=== PATIENT | female | born 1980 | race African-American/Black ===

== ENCOUNTER 2022-06-02 22:12 | Emergency (ER) | payer MEDICAID ==
[~2022-06-02] VITALS: Ht 167.6 cm; Wt 80.0 kg
[~2022-06-02 22:12] MED LIST: AMLO10TA80 PO; ASPI-986 PO; ATOR40TA70 PO; CARV25TA47 PO; CLON0.1T PO; HYDR-4135 PO; [UNRECOGNIZED DRUG - CODE]
[2022-06-02 22:50] VITALS: BP 193/118
== END 2022-06-03 05:46 | disposition home or self-care (01) ==
LOC: ER 22:21
DX: I25.2 Old myocardial infarction (principal); I10 Essential (primary) hypertension; J45.909 Unspecified asthma, uncomplicated; Z98.890 Other specified postprocedural states; Z91.018 Allergy to other foods
CPT/HCPCS: 99281

== ENCOUNTER 2022-11-15 11:28 | Inpatient (IN) | payer MEDICAID ==
[~2022-11-15] VITALS: Ht 167.6 cm; Wt 78.0 kg
[2022-11-15 12:10] LABS: BASOPHILS % 0.9 % (0.0-2.0); EOSINOPHILS % 3.1 % (0.0-5.0); HEMATOCRIT. 30.3 % (36.0-48.0); HEMOGLOBIN. 10.1 g/dL (12.0-16.0); LYMPHOCYTES % 11.8 % (20.0-50.0); MEAN CORPUSCULAR HEMOGLOBIN 27.3 pg (28.0-32.0); MEAN CORPUSCULAR HGB CONC 33.1 g/dL (31.0-37.0); MEAN CORPUSCULAR VOLUME 82.4 fL (81.0-99.0); MEAN PLATELET VOLUME 9.5 fl (7.4-10.4); MONOCYTES % 5.9 % (2.0-8.0); NEUTROPHILS % 78.3 % (40.0-76.0); PLATELET 221 x1000/uL (130-400); RED BLOOD CELL COUNT 3.68 mill/uL (4.2-5.4); RED CELL DISTRIBUTION WIDTH 15.9 % (11.6-14.6); WHITE BLOOD COUNT 6.8 x1000/uL (4.5-11.0)
[2022-11-15] MEDS ORDERED: FUROSEMIDE 40MG/4ML VIAL IVP ONE (12:30)
[2022-11-15] MEDS ORDERED: ENALAPRIL 2.5MG/2ML VIAL 2ML IV ONE (12:30)
[2022-11-15 12:37] LABS: CHLORIDE 118 mEq/L (98-107); INDEX HEMOLYSI 1 (1-3); INDEX ICTERIC 1 (1-4); INDEX LIPEMIC 1 (1-3); POTASSIUM 3.4 mEq/L (3.5-5.1); SODIUM 143 mEq/L (136-145)
[2022-11-15 12:40] LABS: HCG SCREEN NEGATIVE
[2022-11-15] MEDS ORDERED: ENALAPRIL 1.25MG/ML VIAL 1ML IV NR (12:45)
[2022-11-15 12:46] LABS: ALANINE AMINOTRANSFERASE 16 IU/L (13-61); ALBUMIN 3.1 g/dL (3.4-5.0); ASPARTATE AMINOTRANSFERASE 9 IU/L (15-37); BILIRUBIN TOTAL 0.4 mg/dL (0.1-1.0); CALCIUM 8.4 mg/dL (8.5-10.1); CARBON DIOXIDE 17 mEq/L (21-32); CREATININE 3.3 mg/dL (0.6-1.3); GLUCOSE 102 mg/dL (70-105); NT PRO B-TYPE NATRIURETIC PEP 19734 pg/mL (5-125); PROTEIN TOTAL 6.9 g/dL (6.0-8.3); UREA NITROGEN BLOOD 39 mg/dL (7-21)
[2022-11-15 13:00] LABS: TROPONIN I HIGH SENSITIVITY 60 ng/L (<54)
[2022-11-15] MEDS ORDERED: NITROGLYCERIN OINT 1GM/INCH UDPKT TD ONE (13:45)
[2022-11-15] MEDS ORDERED: ENOXAPARIN 80MG/0.8ML SYR SUBCUT ONE (13:45)
[2022-11-15] MEDS ORDERED: HYDRALAZINE 20MG/ML VIAL IV NR (15:00)
[2022-11-15] MEDS ORDERED: NIFEDIPINE XL 60MG TAB PO ONE (16:45)
[2022-11-15] MEDS ORDERED: ONDANSETRON HCL 4MG/2ML INJ IV PRN (16:45)
[2022-11-15] MEDS ORDERED: ACETAMINOPHEN 325MG TABLET PO PRN (16:45)
[2022-11-15] MEDS ORDERED: NIFEDIPINE XL 60MG TAB PO SCH (17:00)
[2022-11-15] MEDS: CLONIDINE 0.1MG TABLET PO PRN ×2 (17:22→21:36)
[2022-11-15] MEDS ORDERED: MINOXIDIL 2.5MG TABLET PO NR (18:00)
[2022-11-15 18:10] LABS: TROPONIN I HIGH SENSITIVITY 63 ng/L (<54)
[2022-11-16] VITALS (7 sets, daily range): BP systolic 109–200; BP diastolic 88–123; PULSE 68–80; RESP 18–20; TEMP 97–97.7; O2SAT 96
[2022-11-16] MEDS ORDERED: HYDRALAZINE 20MG/ML VIAL IV PRN (00:15)
[2022-11-16] MEDS ORDERED: NIFE-32 PO (00:18)
[2022-11-16] MEDS: CLONIDINE 0.1MG TABLET PO PRN ×2 (05:45→13:06)
[2022-11-16 08:03] LABS: POTASSIUM 3.7 mEq/L (3.5-5.1)
[2022-11-16 08:28] LABS: CALCIUM 8.4 mg/dL (8.5-10.1); CREATININE 3.4 mg/dL (0.6-1.3)
[2022-11-16] MEDS ORDERED: FUROSEMIDE 40MG/4ML VIAL IVP SCH (09:00)
[2022-11-16] MEDS ORDERED: ENOXAPARIN 30MG/0.3ML SYR SUBCUT SCH (09:00)
[2022-11-16] MEDS ORDERED: ASPIRIN 325MG TABLET PO SCH (09:00)
[2022-11-16] MEDS ORDERED: HYDRALAZINE HCL 50MG TABLET PO SCH (09:00)
[2022-11-16] MEDS ORDERED: NIFEDIPINE XL 60MG TAB PO SCH ×2 (09:00→21:00)
[2022-11-16] MEDS ORDERED: MINOXIDIL 2.5MG TABLET PO NR (10:15)
[2022-11-16] MEDS ORDERED: FURO-151 MT (12:55)
[2022-11-16 17:06] LABS: *AMPHETAMINES SCREEN URINE NEGATIVE (NEGATIVE); *BARBITURATES SCREEN URINE NEGATIVE (NEGATIVE); *BENZODIAZEPINES SCREEN URINE NEGATIVE (NEGATIVE); *COCAINE SCREEN URINE NEGATIVE (NEGATIVE); CANNABINOID URINE SCREEN NEGATIVE (NEGATIVE); ECSTASY MDMA SCREEN URINE NEGATIVE (NEGATIVE); METHADONE URINE SCREEN NEGATIVE (NEGATIVE); OPIATES URINE SCREEN NEGATIVE (NEGATIVE); PHENCYCLIDINE URINE SCREEN NEGATIVE (NEGATIVE)
[2022-11-16] MEDS ORDERED: ATORVASTATIN CALCIUM 40MG TABLET PO SCH (21:00)
[2022-11-16] MEDS ORDERED: MINOXIDIL 2.5MG TABLET PO SCH (21:00)
== END 2022-11-16 16:20 | disposition home or self-care (01) | DRG 199 ==
LOC: ER 12:09 → EDBEDREQ 13:46 → MICUSO 14:15 → EDBEDREQTM 14:17 → EDBEDREQ 14:17 → 7WST 11-16 00:21
PROVIDERS: ADMIT Internal Medicine; ATTEND Internal Medicine
DX: I16.0 Hypertensive urgency (principal); I50.43 Acute on chronic combined systolic (congestive) and diastolic (congestive) heart failure; E44.1 Mild protein-calorie malnutrition; N17.9 Acute kidney failure, unspecified; I13.0 Hypertensive heart and chronic kidney disease with heart failure and stage 1 through stage 4 chronic kidney disease, or unspecified chronic kidney disease; N18.9 Chronic kidney disease, unspecified; D64.9 Anemia, unspecified; I25.10 Atherosclerotic heart disease of native coronary artery without angina pectoris; J45.909 Unspecified asthma, uncomplicated; E87.6 Hypokalemia; Z95.5 Presence of coronary angioplasty implant and graft; Z98.891 History of uterine scar from previous surgery; Z68.27 Body mass index [BMI] 27.0-27.9, adult
CPT/HCPCS: 36415; 71045; 76604; 80048; 80053; 80305; 83605; 83880; 84484; 84703; 85025; 93005; 93306; 93880; 99285; J0360; J1650; J1940; J3490

== ENCOUNTER 2023-08-01 02:45 | Inpatient (IN) | payer BC, MEDICAID ==
[2023-08-01] VITALS (52 sets, daily range): BP systolic 147–186; BP diastolic 81–107; PULSE 79–104; RESP 16–29; TEMP 98–98.3; O2SAT 95–96
[~2023-08-01] VITALS: Ht 162.6 cm; Wt 81.2 kg
[~2023-08-01 02:45] MED LIST changes: +FURO-151 MT; -HYDR-4135 PO; +HYDR50TA40 PO; +NIFE-32 PO
[2023-08-01] MEDS: LABETALOL 5MG/ML SYR 20 MG/4 ML SYRINGE IV ONE (03:41)
[2023-08-01] MEDS ORDERED: NICARDIPINE 100 MG in SODIUM CHLORIDE 0.9% 60 ML IV ONE (03:45)
[2023-08-01 03:54] LABS: BASOPHILS % 1.2 % (0.0-2.0); DIFFERENTIAL COMMENT 0; EOSINOPHILS % 10.3 % (0.0-5.0); HEMATOCRIT. 26.1 % (36.0-48.0); HEMOGLOBIN. 8.6 g/dL (12.0-16.0); LYMPHOCYTES % 8.8 % (20.0-50.0); MEAN CORPUSCULAR HEMOGLOBIN 26.2 pg (28.0-32.0); MEAN CORPUSCULAR HGB CONC 32.8 g/dL (31.0-37.0); MEAN CORPUSCULAR VOLUME 79.9 fL (81.0-99.0); MEAN PLATELET VOLUME 9.4 fl (7.4-10.4); MONOCYTES % 4.4 % (2.0-8.0); NEUTROPHILS % 75.3 % (40.0-76.0); PLATELET 243 x1000/uL (130-400); RED BLOOD CELL COUNT 3.27 mill/uL (4.2-5.4); WHITE BLOOD COUNT 6.8 x1000/uL (4.5-11.0)
[2023-08-01] MEDS: ALBUTEROL (0.083%) 2.5MG/3ML NEB HHN STA (03:54)
[2023-08-01] MEDS: IPRATROPIUM BROMIDE (0.02%) 0.5MG/2.5ML NEB HHN STA (03:54)
[2023-08-01 04:12] LABS: CHLORIDE 111 mEq/L (98-107); POTASSIUM 3.1 mEq/L (3.5-5.1); SODIUM 144 mEq/L (136-145)
[2023-08-01 04:13] LABS: CALCIUM 9.2 mg/dL (8.7-10.4); CARBON DIOXIDE 20 mEq/L (21-32)
[2023-08-01 04:17] LABS: HCG SCREEN NEGATIVE
[2023-08-01 04:18] LABS: CREATININE 3.5 mg/dL (0.6-1.0); GLUCOSE 99 mg/dL (70-105); UREA NITROGEN BLOOD 48 mg/dL (9-23)
[2023-08-01 04:24] LABS: TROPONIN I HIGH SENSITIVITY 85 ng/L (3.0-34)
[2023-08-01] MEDS: NICARDIPINE 40 MG/200 ML PREMIX 200 ML IV PRN (04:31)
[2023-08-01] MEDS: FUROSEMIDE 40MG/4ML VIAL IVP NR ×2 (05:26→18:35)
[2023-08-01] MEDS ORDERED: ONDANSETRON HCL 4MG/2ML INJ IV PRN (05:30)
[2023-08-01] MEDS ORDERED: GUAIFENESIN 200MG/10ML SUGAR FREE UDC PO PRN (05:30)
[2023-08-01] MEDS: POTASSIUM CHLORIDE 20MEQ/PACKET PO NR (06:35)
[2023-08-01] MEDS: ASPIRIN 325MG EC TABLET PO NR (06:35)
[2023-08-01 07:01] LABS: CLARITY URINE CLEAR (CLEAR); COLOR URINE YELLOW (YELLOW); GLUCOSE URINE NEGATIVE (NEGATIVE); KETONES URINE NEGATIVE (NEGATIVE); LEUKOCYTE ESTERASE URINE NEGATIVE (NEGATIVE); NITRITE URINE NEGATIVE (NEGATIVE); OCCULT BLOOD URINE NEGATIVE (NEGATIVE); PH URINE 5.5 (4.5-8.0); PROTEIN URINE 2+ (NEGATIVE); UROBILINOGEN URINE 0.2 E.U./dL (0.2-1.0)
[2023-08-01 07:12] LABS: TROPONIN I HIGH SENSITIVITY 90 ng/L (3.0-34)
[2023-08-01 07:16] LABS: BACTERIA URINE TRACE; RBC URINE 0-2 /hpf (0-2); SQUAMOUS EPITHELIAL CELL URINE 1+ /lpf (RARE/1+); WBC URINE NONE SEEN /hpf (0-2)
[2023-08-01 07:44] LABS: *AMPHETAMINES SCREEN URINE NEGATIVE (NEGATIVE); *BARBITURATES SCREEN URINE NEGATIVE (NEGATIVE); *BENZODIAZEPINES SCREEN URINE NEGATIVE (NEGATIVE); *COCAINE SCREEN URINE NEGATIVE (NEGATIVE); CANNABINOID URINE SCREEN NEGATIVE (NEGATIVE); ECSTASY MDMA SCREEN URINE NEGATIVE (NEGATIVE); METHADONE URINE SCREEN NEGATIVE (NEGATIVE); OPIATES URINE SCREEN NEGATIVE (NEGATIVE); PHENCYCLIDINE URINE SCREEN NEGATIVE (NEGATIVE)
[2023-08-01 07:52] LABS: BG BASE EXCESS -5.4 mmol/L (-2.0-2.0); BG CARBOXYHEMOGLOBIN 0.3 % (0.5-1.5); BG DEOXYHEMOGLOBIN 3.4 % (0.0-5.0); BG FRACTION INSPIRED OXYGEN 40; BG HCO3 ACT 18.1 mmol/L (22.0-26.0); BG METHEMOGLOBIN 0.3 % (0.0-1.5); BG OXYGEN SATURATION 96.6 % (92.0-98.5); BG PCO2 27.9 mmHg (35.0-45.0); BG PH 7.429 (7.350-7.450); BG PO2 91.6 mmHg (75.0-100.0); BG SAMPLE SITE RIGHT RADIAL; BG TOTAL HEMOGLOBIN 8.9 g/dL (12.0-18.0); BG VENT MODE NASAL CANNULA
[2023-08-01 08:02] LABS: CARBON DIOXIDE 19 mEq/L (21-32); CHLORIDE 113 mEq/L (98-107); POTASSIUM 3.7 mEq/L (3.5-5.1); SODIUM 144 mEq/L (136-145)
[2023-08-01 08:03] LABS: CALCIUM 9.3 mg/dL (8.7-10.4)
[2023-08-01 08:07] LABS: IRON 36 ug/dL (50-170)
[2023-08-01 08:08] LABS: CREATININE 3.4 mg/dL (0.6-1.0); GLUCOSE 108 mg/dL (70-105); TRIGLYCERIDE 90 mg/dL (0-150); UREA NITROGEN BLOOD 47 mg/dL (9-23)
[2023-08-01 08:09] LABS: ALANINE AMINOTRANSFERASE 15 IU/L (10-49); ALBUMIN 4.1 g/dL (3.2-4.8); ASPARTATE AMINOTRANSFERASE 20 IU/L (<34); LDL CHOLESTEROL 115 mg/dL (5-100)
[2023-08-01 08:10] LABS: BILIRUBIN TOTAL 0.3 mg/dL (0.1-1.0); CHOLESTEROL 159 mg/dL (<200); FOLIC ACID (FOLATE) SERUM 8.04 ng/mL (>5.38); HDL CHOLESTEROL 41 mg/dL (>65); PHOSPHORUS 4.6 mg/dL (2.5-4.9); THYROID STIMULATING HORMONE 0.53 uIU/mL (0.55-4.78); TOTAL IRON BINDING CAPACITY 250 ug/dl (250-425)
[2023-08-01 08:11] LABS: PROTEIN TOTAL 7.2 g/dL (6.0-8.3)
[2023-08-01 08:12] LABS: FERRITIN 22 ng/mL (10-291); T4 FREE 1.19 ng/dL (0.89-1.76)
[2023-08-01 08:41] LABS: CREATINE KINASE MB FRACTION 1.9 ng/mL (0.5-3.6)
[2023-08-01 09:00] LABS: VITAMIN B12 SERUM 426 pg/mL (211-911)
[2023-08-01] MEDS ORDERED: CEFTRIAXONE SODIUM 2G VIAL IM NR (09:00)
[2023-08-01] MEDS: DOXYCYCLINE HYCLATE 100MG CAPSULE PO SCH (09:44)
[2023-08-01] MEDS: ENOXAPARIN 30MG/0.3ML SYR SUBCUT SCH (09:44)
[2023-08-01] MEDS: CEFTRIAXONE 2GM/50ML 50 ML IV SCH (14:34)
[2023-08-01] MEDS: HYDRALAZINE HCL 100MG TABLET PO SCH (14:35)
[2023-08-01] MEDS: NICARDIPINE 50 MG in SODIUM CHLORIDE 0.9% 230 ML IV PRN (15:49)
[2023-08-01 19:14] LABS: CREATINE KINASE MB FRACTION 2.3 ng/mL (0.5-3.6)
[2023-08-01] MEDS: NITROGLYCERIN OINT 1GM/INCH UDPKT TD NR (19:57)
[2023-08-01] MEDS: ATORVASTATIN CALCIUM 40MG TABLET PO SCH (20:16)
[2023-08-01] MEDS ORDERED: CARVEDILOL 12.5MG TABLET PO SCH (21:00)
[2023-08-01] MEDS: IPRATROPIUM/ALBUTEROL 0.5-3(2.5)MG/3ML NEB HHN PRN (21:31)
[2023-08-01] MEDS: CLONIDINE 0.1MG TABLET PO SCH (21:46)
[2023-08-02] VITALS (98 sets, daily range): BP systolic 132–201; BP diastolic 75–102; PULSE 80–117; RESP 16–31; TEMP 97.7–97.9; O2SAT 94–100
[2023-08-02 01:11] LABS: CREATINE KINASE MB FRACTION 2.3 ng/mL (0.5-3.6)
[2023-08-02 05:11] LABS: POTASSIUM 3.3 mEq/L (3.5-5.1)
[2023-08-02 05:12] LABS: CALCIUM 9.1 mg/dL (8.7-10.4)
[2023-08-02 05:17] LABS: CREATININE 3.5 mg/dL (0.6-1.0)
[2023-08-02] MEDS ORDERED: CEFTRIAXONE SODIUM 2G VIAL IV NR (09:00)
[2023-08-02] MEDS ORDERED: IPRATROPIUM/ALBUTEROL 0.5-3(2.5)MG/3ML NEB HHN PRN (09:00)
[2023-08-02] MEDS: POTASSIUM CHLORIDE 20MEQ TABLET SR PO NR (09:10)
[2023-08-02] MEDS: AMLODIPINE 10MG TABLET PO SCH (09:11)
[2023-08-02] MEDS: OMEPRAZOLE 20MG CAPSULE EXTENDED RELEASE PO SCH (09:11)
[2023-08-02 10:13] LABS: BASOPHILS % 1.2 % (0.0-2.0); EOSINOPHILS % 9.3 % (0.0-5.0); HEMATOCRIT. 23.9 % (36.0-48.0); HEMOGLOBIN. 7.6 g/dL (12.0-16.0); LYMPHOCYTES % 8.1 % (20.0-50.0); MEAN CORPUSCULAR HEMOGLOBIN 25.7 pg (28.0-32.0); MEAN CORPUSCULAR HGB CONC 31.6 g/dL (31.0-37.0); MEAN CORPUSCULAR VOLUME 81.2 fL (81.0-99.0); MEAN PLATELET VOLUME 9.3 fl (7.4-10.4); MONOCYTES % 5.3 % (2.0-8.0); NEUTROPHILS % 76.1 % (40.0-76.0); PLATELET 254 x1000/uL (130-400); RED BLOOD CELL COUNT 2.94 mill/uL (4.2-5.4); RED CELL DISTRIBUTION WIDTH 20.2 % (11.6-14.6); WHITE BLOOD COUNT 7.8 x1000/uL (4.5-11.0)
[2023-08-02 11:14] LABS: BG BASE EXCESS -5.8 mmol/L (-2.0-2.0); BG CARBOXYHEMOGLOBIN 0.3 % (0.5-1.5); BG DEOXYHEMOGLOBIN 0.7 % (0.0-5.0); BG FRACTION INSPIRED OXYGEN 100; BG HCO3 ACT 18.1 mmol/L (22.0-26.0); BG METHEMOGLOBIN 0.3 % (0.0-1.5); BG OXYGEN SATURATION 99.3 % (92.0-98.5); BG OXYHEMOGLOBIN 98.7 % (94.0-97.0); BG PCO2 29.9 mmHg (35.0-45.0); BG PH 7.399 (7.350-7.450); BG PO2 492.6 mmHg (75.0-100.0); BG SAMPLE SITE RIGHT RADIAL; BG TOTAL HEMOGLOBIN 9.6 g/dL (12.0-18.0); BG VENT MODE MASK - BIPAP
[2023-08-02] MEDS: IPRATROPIUM/ALBUTEROL 0.5-3(2.5)MG/3ML NEB HHN SCH (12:36)
[2023-08-02] MEDS: MINOXIDIL 2.5MG TABLET PO SCH (12:58)
[2023-08-02] MEDS ORDERED: CLON1PAT12 TP (18:32)
[2023-08-02] MEDS ORDERED: OMEP40CA20 MT (18:32)
[2023-08-02] MEDS ORDERED: BECL10.6 INH (18:32)
[2023-08-03] VITALS (87 sets, daily range): BP systolic 129–199; BP diastolic 76–122; PULSE 73–122; RESP 14–33; TEMP 97.8–99.2; O2SAT 95–98
[2023-08-03] MEDS ORDERED: CLONIDINE 0.1MG TABLET PO PRN (01:15)
[2023-08-03] MEDS: NICARDIPINE 40 MG/200 ML PREMIX 200 ML IV PRN (01:25)
[2023-08-03] MEDS: ACETAMINOPHEN 325MG TABLET PO PRN (01:26)
[2023-08-03] MEDS: CLONIDINE 0.2MG TABLET PO NR (01:26)
[2023-08-03 05:35] LABS: HEMOGLOBIN. 7.4 g/dL (12.0-16.0); MEAN CORPUSCULAR HEMOGLOBIN 26.1 pg (28.0-32.0); MEAN CORPUSCULAR HGB CONC 32.3 g/dL (31.0-37.0); MEAN CORPUSCULAR VOLUME 80.8 fL (81.0-99.0); MEAN PLATELET VOLUME 9.4 fl (7.4-10.4); PLATELET 259 x1000/uL (130-400); RED BLOOD CELL COUNT 2.84 mill/uL (4.2-5.4); WHITE BLOOD COUNT 8.8 x1000/uL (4.5-11.0)
[2023-08-03 05:45] LABS: POTASSIUM 3.6 mEq/L (3.5-5.1)
[2023-08-03 05:46] LABS: CALCIUM 9.3 mg/dL (8.7-10.4)
[2023-08-03 05:51] LABS: CREATININE 3.4 mg/dL (0.6-1.0)
[2023-08-03 05:56] LABS: PARTIAL THROMBOPLASTIN TIME 25.7 sec (23.4-31.0); PROTHROMBIN TIME 11.5 sec (9.6-11.0)
[2023-08-03 05:59] LABS: DIFFERENTIAL COMMENT 1
[2023-08-03] MEDS: HYDROCHLOROTHIAZIDE 12.5MG CAPSULE PO SCH (08:58)
[2023-08-03] MEDS: LOSARTAN 50 MG TABLET PO SCH (08:58)
[2023-08-03] MEDS: CITRIC ACID/SODIUM CITRATE SOLN 15ML UDC PO SCH (09:00)
[2023-08-03] MEDS ORDERED: CLONIDINE HCL 0.3MG/24HR PATCH TD SCH (11:00)
[2023-08-03 11:21] LABS: PROTEIN BODY FLUID < 2.0 gm/dL
[2023-08-03 13:11] LABS: BODY FLUID RBC 1310 /cu mm (0-2000); BODY FLUID WBC 26 /cu mm (0-200)
[2023-08-03] MEDS ORDERED: ACETAMINOPHEN 325MG TABLET PO PRN (13:45)
[2023-08-03 14:00] LABS: ANISOCYTOSIS 2+; PLATELET ESTIMATE NORMAL
[2023-08-03] MEDS ORDERED: CLONIDINE HCL 0.1MG/24HR PATCH TD SCH (14:00)
[2023-08-03] MEDS ORDERED: MINOXIDIL 10MG TABLET PO SCH (21:00)
[2023-08-04] VITALS (65 sets, daily range): BP systolic 123–178; BP diastolic 71–110; PULSE 80–103; RESP 12–24; TEMP 97.3–99.2; O2SAT 96–98
[2023-08-04] MEDS: MINOXIDIL 10MG TABLET PO SCH (00:18)
[2023-08-04 06:55] LABS: CARBON DIOXIDE 20 mEq/L (21-32); CHLORIDE 114 mEq/L (98-107); POTASSIUM 3.7 mEq/L (3.5-5.1); SODIUM 144 mEq/L (136-145)
[2023-08-04 07:00] LABS: CREATININE 3.4 mg/dL (0.6-1.0)
[2023-08-04 07:01] LABS: GLUCOSE 93 mg/dL (70-105); UREA NITROGEN BLOOD 43 mg/dL (9-23)
[2023-08-04 07:03] LABS: PHOSPHORUS 5.1 mg/dL (2.5-4.9)
[2023-08-04] MEDS: FUROSEMIDE 40MG/4ML VIAL IVP NR (09:47)
[2023-08-04 12:47] LABS: HEMATOCRIT 23.2 % (36.0-48.0); HEMOGLOBIN 7.4 g/dL (12.0-16.0)
[2023-08-04] MEDS: METOPROLOL TARTRATE 25MG TABLET PO SCH (20:47)
[2023-08-05] VITALS (10 sets, daily range): BP systolic 99–147; BP diastolic 61–95; PULSE 77–95; RESP 16–30; TEMP 96.3–98.1; O2SAT 99
[2023-08-05] MEDS: NIFEDIPINE XL 90MG TAB PO SCH (09:10)
[2023-08-05] MEDS: IRON SUCROSE COMPLEX 100 MG/5 ML ML IV SCH (13:42)
== END 2023-08-05 20:10 | disposition left against medical advice (07) | DRG 280 ==
LOC: ER 02:45 → MICUSO 04:24 → EDBEDREQ 04:44 → EDBEDREQTM 04:44 → 5EST 08-04 11:50
PROVIDERS: ADMIT Internal Medicine; ATTEND Internal Medicine
PROC: 5A09357 Assistance with Respiratory Ventilation, Less than 24 Consecutive Hours, Continuous Positive Airway Pressure (ICD-10-PCS; 2023-08-02)
PROC: 0W993ZZ Drainage of Right Pleural Cavity, Percutaneous Approach (ICD-10-PCS; principal; 2023-08-03)
PROC: 0W9B3ZZ Drainage of Left Pleural Cavity, Percutaneous Approach (ICD-10-PCS; 2023-08-05)
DX: I16.1 Hypertensive emergency (principal); J96.01 Acute respiratory failure with hypoxia; I21.A1 Myocardial infarction type 2; I50.32 Chronic diastolic (congestive) heart failure; N17.9 Acute kidney failure, unspecified; N18.4 Chronic kidney disease, stage 4 (severe); E87.20 Acidosis, unspecified; J91.8 Pleural effusion in other conditions classified elsewhere; I13.0 Hypertensive heart and chronic kidney disease with heart failure and stage 1 through stage 4 chronic kidney disease, or unspecified chronic kidney disease; N18.9 Chronic kidney disease, unspecified; I25.10 Atherosclerotic heart disease of native coronary artery without angina pectoris; D25.9 Leiomyoma of uterus, unspecified; Z53.29 Procedure and treatment not carried out because of patient's decision for other reasons; E78.5 Hyperlipidemia, unspecified; J45.909 Unspecified asthma, uncomplicated; R79.89 Other specified abnormal findings of blood chemistry; D72.10 Eosinophilia, unspecified; D50.9 Iron deficiency anemia, unspecified; D63.8 Anemia in other chronic diseases classified elsewhere; E05.90 Thyrotoxicosis, unspecified without thyrotoxic crisis or storm; H05.20 Unspecified exophthalmos; E87.6 Hypokalemia; Z98.891 History of uterine scar from previous surgery; Z95.5 Presence of coronary angioplasty implant and graft; Z79.51 Long term (current) use of inhaled steroids; Z79.82 Long term (current) use of aspirin; Z79.899 Other long term (current) drug therapy; Z88.8 Allergy status to other drugs, medicaments and biological substances
CPT/HCPCS: 32555; 36415; 36600; 71045; 76536; 76604; 76700; 76770; 78580; 80048; 80053; 80061; 80305; 81003; 82088; 82375; 82550; 82553; 82607; 82728; 82746; 82805; 83540; 83550; 83605; 83615; 83735; 83835; 83880; 83986; 84100; 84145; 84244; 84439; 84443; 84484; 84703; 85014; 85018; 85025; 85379; 85651; 86038; 86850; 86900; 88108; 93005; 93306; 93970; 94640; 94660; 99285; C8901; J0696; J1650; J1940; J3490; J7050

== ENCOUNTER 2024-09-04 10:43 | Inpatient (IN) | payer MEDICAID, OTHER ==
[2024-09-04] VITALS (45 sets, daily range): BP systolic 144–238; BP diastolic 81–162; PULSE 65–102; RESP 15–28; TEMP 36.4–36.89184; O2SAT 92–99
[~2024-09-04] VITALS: Ht 172.7 cm; Wt 67.8 kg
[~2024-09-04 10:43] MED LIST changes: -AMLO10TA80 PO; +BECL10.6 INH; -NIFE-32 PO; +NIFE90TA60 PO; +OMEP40CA20 MT; -[UNRECOGNIZED DRUG - CODE]
[2024-09-04 11:30] LABS: BASOPHILS % 1.9 % (0.0-2.0); DIFFERENTIAL COMMENT 0; EOSINOPHILS % 5.4 % (0.0-5.0); HEMATOCRIT. 25.8 % (36.0-48.0); HEMOGLOBIN. 8.4 g/dL (12.0-16.0); LYMPHOCYTES % 7.3 % (20.0-50.0); MEAN CORPUSCULAR HEMOGLOBIN 25.7 pg (28.0-32.0); MEAN CORPUSCULAR HGB CONC 32.5 g/dL (31.0-37.0); MEAN PLATELET VOLUME 8.6 fl (7.4-10.4); MONOCYTES % 4.4 % (2.0-8.0); PLATELET 249 x1000/uL (130-400); RED BLOOD CELL COUNT 3.26 mill/uL (4.2-5.4); RED CELL DISTRIBUTION WIDTH 20.4 % (11.6-14.6); WHITE BLOOD COUNT 6.6 x1000/uL (4.5-11.0)
[2024-09-04 11:36] LABS: CHLORIDE 115 mEq/L (98-107); SODIUM 147 mEq/L (136-145)
[2024-09-04 11:37] LABS: CARBON DIOXIDE 17 mEq/L (21-32)
[2024-09-04 11:38] LABS: CALCIUM 6.9 mg/dL (8.7-10.4)
[2024-09-04 11:42] LABS: GLUCOSE 120 mg/dL (70-105); UREA NITROGEN BLOOD 77 mg/dL (9-23)
[2024-09-04 11:44] LABS: ALANINE AMINOTRANSFERASE 37 IU/L (10-49); ALBUMIN 3.6 g/dL (3.2-4.8); ASPARTATE AMINOTRANSFERASE 26 IU/L (<34)
[2024-09-04 11:45] LABS: BILIRUBIN DIRECT 0.1 mg/dL (<=3.0); BILIRUBIN TOTAL 0.2 mg/dL (0.1-1.0); PROTEIN TOTAL 5.6 g/dL (6.0-8.3)
[2024-09-04] MEDS: FUROSEMIDE 40MG/4ML VIAL IVP ONE (11:57)
[2024-09-04] MEDS: NITROGLYCERIN 50MG PREMIX 250 ML IV ONE (12:06)
[2024-09-04 12:18] LABS: HCG SCREEN NEGATIVE
[2024-09-04 12:33] LABS: CREATININE 5.4 mg/dL (0.6-1.0); POTASSIUM 2.8 mEq/L (3.5-5.1)
[2024-09-04 12:34] LABS: TROPONIN I HIGH SENSITIVITY 111 ng/L (3.0-34)
[2024-09-04] MEDS ORDERED: HYDRALAZINE HCL 25MG TABLET PO SCH (12:45)
[2024-09-04] MEDS ORDERED: ONDANSETRON HCL 4MG/2ML INJ IV PRN (12:45)
[2024-09-04] MEDS ORDERED: IPRATROPIUM/ALBUTEROL 0.5-3(2.5)MG/3ML NEB HHN PRN (13:45)
[2024-09-04] MEDS: NICARDIPINE 40MG/200ML PREMIX 200 ML IV PRN (14:21)
[2024-09-04] MEDS: POTASSIUM CHLORIDE 20MEQ TABLET SR PO SCH (16:09)
[2024-09-04 16:44] LABS: THYROID STIMULATING HORMONE 0.28 uIU/mL (0.55-4.78)
[2024-09-04 21:26] LABS: CLARITY URINE CLEAR (CLEAR); COLOR URINE YELLOW (YELLOW); GLUCOSE URINE NEGATIVE (NEGATIVE); KETONES URINE NEGATIVE (NEGATIVE); LEUKOCYTE ESTERASE URINE NEGATIVE (NEGATIVE); NITRITE URINE NEGATIVE (NEGATIVE); OCCULT BLOOD URINE NEGATIVE (NEGATIVE); PROTEIN URINE 3+ (NEGATIVE); UROBILINOGEN URINE 0.2 E.U./dL (0.2-1.0)
[2024-09-04 21:38] LABS: BACTERIA URINE TRACE; RBC URINE 0-2 /hpf (0-2); SQUAMOUS EPITHELIAL CELL URINE FEW /lpf (RARE/1+); WBC URINE 0-2 /hpf (0-2)
[2024-09-04 21:44] LABS: *AMPHETAMINES SCREEN URINE NEGATIVE (NEGATIVE); *BARBITURATES SCREEN URINE NEGATIVE (NEGATIVE); *BENZODIAZEPINES SCREEN URINE NEGATIVE (NEGATIVE); *COCAINE SCREEN URINE NEGATIVE (NEGATIVE); CANNABINOID URINE SCREEN NEGATIVE (NEGATIVE); ECSTASY MDMA SCREEN URINE NEGATIVE (NEGATIVE); METHADONE URINE SCREEN NEGATIVE (NEGATIVE); OPIATES URINE SCREEN NEGATIVE (NEGATIVE); PHENCYCLIDINE URINE SCREEN NEGATIVE (NEGATIVE)
[2024-09-04] MEDS: CLONIDINE 0.1MG TABLET PO SCH (22:19)
[2024-09-04] MEDS: NIFEDIPINE XL 60MG TAB PO SCH (22:21)
[2024-09-04] MEDS: HYDRALAZINE HCL 100MG TABLET PO SCH (22:21)
[2024-09-05] VITALS (48 sets, daily range): BP systolic 124–172; BP diastolic 79–108; PULSE 72–111; RESP 14–25; TEMP 36.2–36.8; O2SAT 88–98
[2024-09-05 06:03] LABS: BASOPHILS % 1.8 % (0.0-2.0); DIFFERENTIAL COMMENT 0; EOSINOPHILS % 4.9 % (0.0-5.0); HEMATOCRIT. 22.9 % (36.0-48.0); HEMOGLOBIN. 7.5 g/dL (12.0-16.0); LYMPHOCYTES % 9.7 % (20.0-50.0); MEAN CORPUSCULAR HEMOGLOBIN 25.3 pg (28.0-32.0); MEAN CORPUSCULAR HGB CONC 32.6 g/dL (31.0-37.0); MEAN CORPUSCULAR VOLUME 77.8 fL (81.0-99.0); MEAN PLATELET VOLUME 8.7 fl (7.4-10.4); MONOCYTES % 8.3 % (2.0-8.0); NEUTROPHILS % 75.3 % (40.0-76.0); PLATELET 220 x1000/uL (130-400); RED BLOOD CELL COUNT 2.94 mill/uL (4.2-5.4); RED CELL DISTRIBUTION WIDTH 20.1 % (11.6-14.6); WHITE BLOOD COUNT 6.5 x1000/uL (4.5-11.0)
[2024-09-05 06:36] LABS: POTASSIUM 3.2 mEq/L (3.5-5.1)
[2024-09-05 06:37] LABS: CALCIUM 8.8 mg/dL (8.7-10.4)
[2024-09-05 06:42] LABS: CREATININE 4.6 mg/dL (0.6-1.0)
[2024-09-05 06:47] LABS: PHOSPHORUS 3.9 mg/dL (2.5-4.9)
[2024-09-06] VITALS: BP 156/91; PULSE 75; RESP 18; TEMP 36.6; O2SAT 96
[2024-09-06 04:00] VITALS: BP 146/98; PULSE 71; RESP 18; TEMP 36.5; O2SAT 96
[2024-09-06 08:00] VITALS: BP 157/108; PULSE 66; RESP 16; TEMP 36.4; O2SAT 98
[2024-09-06 12:00] VITALS: BP 143/80; PULSE 71; RESP 18; TEMP 36.5; O2SAT 95
[2024-09-06] MEDS: POTASSIUM CHLORIDE 20MEQ TABLET SR PO SCH (15:18)
[2024-09-06 16:00] VITALS: BP 142/92; PULSE 71; RESP 18; TEMP 36.4; O2SAT 93
[2024-09-06 17:34] LABS: BASOPHILS % 1.3 % (0.0-2.0); DIFFERENTIAL COMMENT 0; EOSINOPHILS % 8.6 % (0.0-5.0); HEMATOCRIT. 26.1 % (36.0-48.0); HEMOGLOBIN. 8.4 g/dL (12.0-16.0); LYMPHOCYTES % 9.3 % (20.0-50.0); MEAN CORPUSCULAR HEMOGLOBIN 25.8 pg (28.0-32.0); MEAN CORPUSCULAR HGB CONC 32.2 g/dL (31.0-37.0); MEAN CORPUSCULAR VOLUME 79.9 fL (81.0-99.0); MEAN PLATELET VOLUME 8.8 fl (7.4-10.4); MONOCYTES % 8.7 % (2.0-8.0); NEUTROPHILS % 72.1 % (40.0-76.0); PLATELET 240 x1000/uL (130-400); RED BLOOD CELL COUNT 3.26 mill/uL (4.2-5.4); RED CELL DISTRIBUTION WIDTH 20.3 % (11.6-14.6); WHITE BLOOD COUNT 6.4 x1000/uL (4.5-11.0)
[2024-09-06 17:45] LABS: POTASSIUM 3.5 mEq/L (3.5-5.1)
[2024-09-06 17:46] LABS: CALCIUM 7.9 mg/dL (8.7-10.4)
[2024-09-06 17:52] LABS: CREATININE 5.2 mg/dL (0.6-1.0)
[2024-09-06 20:00] VITALS: BP 155/96; PULSE 77; RESP 20; TEMP 36.2; O2SAT 96
[2024-09-07] VITALS (16 sets, daily range): BP systolic 154–189; BP diastolic 97–120; PULSE 70–81; RESP 13–22; TEMP 36.2–37.00296; O2SAT 94–98
[2024-09-07 06:27] LABS: POTASSIUM 3.6 mEq/L (3.5-5.1)
[2024-09-07 06:28] LABS: CALCIUM 7.6 mg/dL (8.7-10.4)
[2024-09-07 06:50] LABS: BASOPHILS % 1.5 % (0.0-2.0); DIFFERENTIAL COMMENT 0; EOSINOPHILS % 7.1 % (0.0-5.0); HEMATOCRIT. 25.8 % (36.0-48.0); HEMOGLOBIN. 8.5 g/dL (12.0-16.0); LYMPHOCYTES % 11.1 % (20.0-50.0); MEAN CORPUSCULAR HEMOGLOBIN 25.7 pg (28.0-32.0); MEAN CORPUSCULAR HGB CONC 32.7 g/dL (31.0-37.0); MEAN CORPUSCULAR VOLUME 78.7 fL (81.0-99.0); MONOCYTES % 8.1 % (2.0-8.0); NEUTROPHILS % 72.2 % (40.0-76.0); PLATELET 225 x1000/uL (130-400); RED BLOOD CELL COUNT 3.28 mill/uL (4.2-5.4); RED CELL DISTRIBUTION WIDTH 20.2 % (11.6-14.6); WHITE BLOOD COUNT 5.6 x1000/uL (4.5-11.0)
[2024-09-07 07:05] LABS: CREATININE 5.1 mg/dL (0.6-1.0)
[2024-09-07] MEDS ORDERED: IOHEXOL-350 100 ML BOTTLE ONE (10:01)
[2024-09-07 13:20] LABS: IRON 33 ug/dL (50-170)
[2024-09-07 13:23] LABS: TOTAL IRON BINDING CAPACITY 269 ug/dl (250-425)
[2024-09-07] MEDS: FERROUS SULFATE 325MG TABLET PO SCH (18:10)
[2024-09-07 18:54] LABS: HEPATITIS B SURFACE ANTIGEN NEGATIVE (Negative)
[2024-09-07 19:14] LABS: HEPATITIS A AB IGM NEGATIVE (Negative)
[2024-09-07 19:15] LABS: HEPATITIS B CORE AB IGM NEGATIVE (Negative); HEPATITIS C AB NON REACTIVE (Neg) (Negative)
[2024-09-07] MEDS: EPOETIN ALFA-EPBX 4,000 UNIT/ML VIAL SUBCUT SCH (21:13)
[2024-09-08] VITALS (7 sets, daily range): BP systolic 164–190; BP diastolic 101–119; PULSE 72–83; RESP 14–18; TEMP 36.2–36.6; O2SAT 95–100
[2024-09-08 07:42] LABS: CALCIUM 7.8 mg/dL (8.7-10.4); POTASSIUM 3.7 mEq/L (3.5-5.1)
[2024-09-08 07:48] LABS: CREATININE 3.8 mg/dL (0.6-1.0)
[2024-09-08] MEDS: HYDRALAZINE 20MG/ML VIAL IV PRN (07:53)
[2024-09-08 08:52] LABS: BASOPHILS % 1.1 % (0.0-2.0); DIFFERENTIAL COMMENT 0; EOSINOPHILS % 8.3 % (0.0-5.0); HEMATOCRIT. 24.9 % (36.0-48.0); HEMOGLOBIN. 7.9 g/dL (12.0-16.0); LYMPHOCYTES % 10.2 % (20.0-50.0); MEAN CORPUSCULAR HEMOGLOBIN 25.2 pg (28.0-32.0); MEAN CORPUSCULAR HGB CONC 31.7 g/dL (31.0-37.0); MEAN CORPUSCULAR VOLUME 79.5 fL (81.0-99.0); MEAN PLATELET VOLUME 8.9 fl (7.4-10.4); MONOCYTES % 7.4 % (2.0-8.0); PLATELET 208 x1000/uL (130-400); RED BLOOD CELL COUNT 3.13 mill/uL (4.2-5.4); RED CELL DISTRIBUTION WIDTH 20.9 % (11.6-14.6); WHITE BLOOD COUNT 5.8 x1000/uL (4.5-11.0)
[2024-09-08] MEDS: DOCUSATE SODIUM 250MG CAPSULE PO SCH (13:09)
[2024-09-08] MEDS: CLONIDINE 0.2MG TABLET PO SCH (13:09)
[2024-09-08] MEDS: LACTULOSE 20G/30ML UDC PO PRN (20:42)
[2024-09-08] MEDS: CLONIDINE 0.1MG TABLET PO PRN (23:59)
[2024-09-09] VITALS (11 sets, daily range): BP systolic 144–232; BP diastolic 93–233; PULSE 6–74; RESP 17–20; TEMP 36.3–36.7; O2SAT 96–98
[2024-09-09 06:59] LABS: POTASSIUM 3.9 mEq/L (3.5-5.1)
[2024-09-09 07:00] LABS: CALCIUM 7.9 mg/dL (8.7-10.4)
[2024-09-09 07:04] LABS: CREATININE 4.3 mg/dL (0.6-1.0)
[2024-09-09] MEDS: CALCIUM ACETATE 667MG CAPSULE PO SCH (12:38)
[2024-09-09] MEDS: LOSARTAN 100 MG TABLET PO SCH (18:33)
[2024-09-10] VITALS (8 sets, daily range): BP systolic 126–200; BP diastolic 81–142; PULSE 64–74; RESP 16–20; TEMP 36.1–36.7; O2SAT 96–98
[2024-09-10 10:10] LABS: BASOPHILS % 1.5 % (0.0-2.0); DIFFERENTIAL COMMENT 0; HEMATOCRIT. 26.6 % (36.0-48.0); HEMOGLOBIN. 8.6 g/dL (12.0-16.0); LYMPHOCYTES % 10.1 % (20.0-50.0); MEAN CORPUSCULAR HEMOGLOBIN 25.5 pg (28.0-32.0); MEAN CORPUSCULAR HGB CONC 32.3 g/dL (31.0-37.0); MEAN CORPUSCULAR VOLUME 79.1 fL (81.0-99.0); MEAN PLATELET VOLUME 8.9 fl (7.4-10.4); MONOCYTES % 7.7 % (2.0-8.0); NEUTROPHILS % 71.7 % (40.0-76.0); PLATELET 226 x1000/uL (130-400); RED BLOOD CELL COUNT 3.36 mill/uL (4.2-5.4); RED CELL DISTRIBUTION WIDTH 20.2 % (11.6-14.6); WHITE BLOOD COUNT 5.5 x1000/uL (4.5-11.0)
[2024-09-10 10:38] LABS: POTASSIUM 3.7 mEq/L (3.5-5.1)
[2024-09-10 10:39] LABS: CALCIUM 8.4 mg/dL (8.7-10.4)
[2024-09-10 10:44] LABS: CREATININE 3.4 mg/dL (0.6-1.0)
[2024-09-10 10:46] LABS: PHOSPHORUS 3.6 mg/dL (2.5-4.9)
[2024-09-10] MEDS: CLONIDINE 0.3MG TABLET PO SCH (13:09)
[2024-09-11] VITALS (9 sets, daily range): BP systolic 166–223; BP diastolic 104–132; PULSE 64–78; RESP 17–20; TEMP 36.4–36.8; O2SAT 96–100
[2024-09-11] MEDS: LABETALOL HCL 200MG TABLET PO SCH (01:04)
[2024-09-11 06:27] LABS: BASOPHILS % 1.7 % (0.0-2.0); DIFFERENTIAL COMMENT 0; EOSINOPHILS % 10.2 % (0.0-5.0); HEMATOCRIT. 25.2 % (36.0-48.0); HEMOGLOBIN. 8.2 g/dL (12.0-16.0); LYMPHOCYTES % 14.7 % (20.0-50.0); MEAN CORPUSCULAR HEMOGLOBIN 25.7 pg (28.0-32.0); MEAN CORPUSCULAR HGB CONC 32.4 g/dL (31.0-37.0); MEAN CORPUSCULAR VOLUME 79.3 fL (81.0-99.0); MEAN PLATELET VOLUME 8.8 fl (7.4-10.4); MONOCYTES % 7.9 % (2.0-8.0); NEUTROPHILS % 65.5 % (40.0-76.0); PLATELET 216 x1000/uL (130-400); RED BLOOD CELL COUNT 3.18 mill/uL (4.2-5.4); RED CELL DISTRIBUTION WIDTH 19.9 % (11.6-14.6); WHITE BLOOD COUNT 4.9 x1000/uL (4.5-11.0)
[2024-09-11 06:28] LABS: POTASSIUM 4.4 mEq/L (3.5-5.1)
[2024-09-11 06:29] LABS: CALCIUM 8.4 mg/dL (8.7-10.4)
[2024-09-11 06:33] LABS: CREATININE 4.4 mg/dL (0.6-1.0)
[2024-09-11] MEDS: MINOXIDIL 2.5MG TABLET PO NR (13:49)
[2024-09-11] MEDS: MINOXIDIL 2.5MG TABLET PO SCH (21:05)
[2024-09-12] VITALS (14 sets, daily range): BP systolic 107–182; BP diastolic 61–110; PULSE 67–88; RESP 17–20; TEMP 36.114–37.1; O2SAT 95–100
[2024-09-12 06:52] LABS: POTASSIUM 3.9 mEq/L (3.5-5.1)
[2024-09-12 06:53] LABS: CALCIUM 8.7 mg/dL (8.7-10.4)
[2024-09-12 06:58] LABS: CREATININE 3.3 mg/dL (0.6-1.0)
[2024-09-12] MEDS ORDERED: CARV25TA47 MT (09:55)
[2024-09-12] MEDS ORDERED: MINO2.5T19 PO (09:55)
[2024-09-12] MEDS ORDERED: CLON0.3T PO (09:55)
[2024-09-12] MEDS ORDERED: NIFE-32 PO (09:55)
== END 2024-09-12 20:00 | disposition home or self-care (01) | DRG 194 ==
LOC: ER 10:43 → EDBEDREQ 11:27 → MICUSO 11:53 → EDBEDREQSVC 11:55 → EDBEDREQ 11:55 → 6WST 09-05 10:00
PROVIDERS: ADMIT Internal Medicine; ATTEND Internal Medicine
PROC: 5A1D70Z Performance of Urinary Filtration, Intermittent, Less than 6 Hours Per Day (ICD-10-PCS; principal; 2024-09-04)
PROC: 5A1D70Z Performance of Urinary Filtration, Intermittent, Less than 6 Hours Per Day (ICD-10-PCS; 2024-09-07)
PROC: 5A1D70Z Performance of Urinary Filtration, Intermittent, Less than 6 Hours Per Day (ICD-10-PCS; 2024-09-09)
PROC: 5A1D70Z Performance of Urinary Filtration, Intermittent, Less than 6 Hours Per Day (ICD-10-PCS; 2024-09-11)
DX: I13.2 Hypertensive heart and chronic kidney disease with heart failure and with stage 5 chronic kidney disease, or end stage renal disease (principal); J96.01 Acute respiratory failure with hypoxia; I31.39 Other pericardial effusion (noninflammatory); E87.0 Hyperosmolality and hypernatremia; N18.6 End stage renal disease; R18.8 Other ascites; D63.8 Anemia in other chronic diseases classified elsewhere; E83.51 Hypocalcemia; I50.33 Acute on chronic diastolic (congestive) heart failure; E87.20 Acidosis, unspecified; R65.10 Systemic inflammatory response syndrome (SIRS) of non-infectious origin without acute organ dysfunction; H05.20 Unspecified exophthalmos; E87.6 Hypokalemia; D25.9 Leiomyoma of uterus, unspecified; K59.00 Constipation, unspecified; K57.30 Diverticulosis of large intestine without perforation or abscess without bleeding; D50.9 Iron deficiency anemia, unspecified; E05.90 Thyrotoxicosis, unspecified without thyrotoxic crisis or storm; J45.909 Unspecified asthma, uncomplicated; I27.20 Pulmonary hypertension, unspecified; N25.81 Secondary hyperparathyroidism of renal origin; I25.10 Atherosclerotic heart disease of native coronary artery without angina pectoris; Z99.2 Dependence on renal dialysis; Z95.5 Presence of coronary angioplasty implant and graft; Z91.018 Allergy to other foods
CPT/HCPCS: 36415; 71045; 74176; 80048; 80061; 80076; 80305; 81003; 82728; 83540; 83550; 83605; 83735; 83880; 83970; 84100; 84145; 84443; 84484; 84703; 85025; 86705; 86709; 87340; 90935; 93005; 93970; 99291; A4606; J0360; J0885; J1940; J3490; Q9967